=== PATIENT | female | born 1995 | race Caucasian/White ===

== ENCOUNTER 2020-06-13 15:51 | Emergency (ER) | payer BC ==
[2020-06-13] MEDS ORDERED: SODIUM CHLORIDE 0.9% 500 ML INFUS.BAG IV ONE (16:50)
[2020-06-13 16:52] VITALS: BP 132/62; PULSE 72; TEMP 98.1; BMI 35.9
--- OUTSIDE RECORDS SUMMARY | 2020-06-13 16:55 | XMS ---
:1995 Author Organization [facility] Support Name Relationship Address Phone UE Unavailable Unavailable Unavailable KORY DOWD [address] [facility] [phone] [place] [id number] Re-disclosure Warning The records that you are about to access may contain information from federally- assisted alcohol or drug abuse programs. If such information is present, then the following federally mandated warning applies: This information has been disclosed to you from records protected by federal confidentiality rules (42 CFR part 2). The federal rules prohibit you from making any further disclosure of this information unless further disclosure is expressly permitted by the written consent of the person to whom it pertains or as otherwise permitted by 42 CFR part 2. A general authorization for the release of medical or other information is NOT sufficient for this purpose. The Federal rules restrict any use of the information to criminally investigate or prosecute any alcohol or drug abuse patient.The records that you are about to access may contain highly sensitive health information, the redisclosure of which is protected by Article 27-F of the [facility] Public Health law. If you continue you may haveaccess to information: Regarding HIV / AIDS; Provided by facilities licensed or operated by the [facility] Office of Mental Health; or Provided by the [facility] Office for People With Developmental Disabilities. If such information is present, then the following [facility] mandated warning applies: This information has been disclosed to you from confidential records which are protected by state law. State law prohibits you from making any further disclosure of this information without the specific written consent of the person to whom it pertains, or as otherwise permitted by law. Any unauthorized further disclosure in violation of state law may result in a fine or correction sentence or both. A general authorization for the release of medical or other information is NOT sufficient authorization for further disclosure. Insurance Providers Payer name Policy type / Policy ID Covered Covered republican's Policy Plan Coverage type republican ID relationship to Rod Information rod [employer] EPO [id number]
--- NOTE | 2020-06-13 17:00 | PDOC ---
History of Present Illness - General Chief Complaint: Allergic Reaction Stated Complaint: LUMP ON BACK (MIDDLE) Time Seen by Provider: 06/13/20 16:32 History Source: Patient Exam Limitations: No Limitations - History of Present Illness Initial Comments: 06/13/20 16:55 Patient is a 25-year-old female who presents the ED with an abscess to her back that she has had for the last 5 days. She states she saw her primary doctor yesterday and was started on Augmentin and Bactrim for the abscess. She states she noticed it was getting progressively worse so she followed up with her primary doctor. She denies any fevers or chills. She states the area hurts tremendously. After starting the antibiotic she developed a rash to her bilateral wrists which is very itchy. She denies any mouth or tongue swelling. She denies any difficulty tolerating her own secretions. She denies any shortness of breath. Past History - Medical History Allergies/Adverse Reactions: Allergies Allergy/AdvReac Type Severity Reaction Status Date / Time No Known Allergies Allergy Verified 06/13/20 16:17 Home Medications: Ambulatory Orders Clindamycin [Cleocin -] 300 mg PO Q6H 10 Days #40 capsule 06/13/20 Diphenhydramine HCl [Benadryl -] 25 mg PO Q6H PRN #30 capsule 06/13/20 - Reproductive History Is Patient Now?: No - Psycho-Social/Smoking History Smoking History: Never smoked - Substance Abuse Hx (Audit-C & DAST Scrn) How often the patient has a drink containing alcohol: Never Score: In Men: 4 or > Positive; In Women: 3 or > Positive: 0 Screen Result (Pos requires Nsg. Audit-10AR): Negative Review of Systems - Review of Systems Comments:: 06/13/20 16:57 - Review of Systems Able to Perform ROS?: Yes Constitutional: No: Fever, Chills, Loss of Appetite, Night Sweats, Weakness HEENTM: No: Eye Pain, Vision changes, Ear Pain, Throat Pain, Throat Swelling, Mouth Pain, Difficulty Swallowing Respiratory: No: Cough, Shortness of Breath, Wheezing, Sputum Production Cardiac (ROS): No: Chest Pain, Chest Tightness, Palpitations, Irregular Heart Beat, Edema ABD/GI: No: Nausea, Vomiting, Abdominal Pain, Diarrhea : No Dysuria, No Hematuria, No Frequency, No Urgency, No Vaginal Discharge/Pain, No Penile Discharge/Pain Musculoskeletal: No: Muscle Pain, Back Pain, Joint Pain, Muscle Weakness, Neck Pain Integumentary: No: Lesions; positive: Abscess to the upper back, urticarial allergic reaction Neurological: No: Headache, Numbness, Tingling, Weakness, Speech Difficulties *Physical Exam - Vital Signs Last Vital Signs Temp Pulse Resp BP Pulse Ox 98.1 F 72 18 132/62 99 06/13/20 16:17 06/13/20 16:17 06/13/20 16:17 06/13/20 16:17 06/13/20 16:17 - Physical Exam 06/13/20 17:02 - Physical Exam General Appearance: Nourished, Appropriately Dressed, No Distress HEENT: EOMI, Normal Voice, Hearing Grossly Normal; no mouth or tongue swelling appreciated. Uvula midline and without edema. Airway patent. No stridor. Neck: Supple, No Lymphadenopathy (R), No Lymphadenopathy (L), No Rigidity, No Decreased range of motion Respiratory/Chest: Lungs Clear, Normal Breath Sounds. No Respiratory Distress, No Accessory Muscle Use; no wheezes/rales/rhonchi Cardiovascular: Regular Rhythm, Regular Rate, S1, S2 Gastrointestinal/Abdominal: Normal Bowel Sounds, Soft. Non-tender, No Guarding, No Rebound, No Rigidity Musculoskeletal: Normal Inspection. No Decreased Range of Motion Extremity: Normal Capillary Refill, Normal Inspection Integumentary: Normal Color, Dry. Erythematous and indurated lesion to the upper back with significant tenderness to palpation. There is a small pustule in the center of the lesion without fluctuance. There are multiple excoriations appreciated. Significant warmth to touch. Area of erythema is 11 x 6.5 cm and area of induration is 14 x 10.5 cm. Both erythema and induration circumscribed with a skin pen and dated. The pustule was unroofed using an 11 blade scalpel after cleaning the skin with Betadine. A small amount of pus was expressed. The area was re-cleaned and bandaged with a sterile dressing. Bilateral wrist urticaria appreciated. Neurologic: psychiatric nursing aide II-XII NML intact, Fully Oriented, Alert, Normal Mood/Affect, Normal Response Procedure: The pustule was unroofed using an 11 blade scalpel after cleaning the skin with Betadine. A small amount of pus was expressed. The area was re-cleaned and bandaged with a sterile dressing. ED Treatment Course - LABORATORY CBC & Chemistry Diagram: 06/13/20 17:45 06/13/20 17:45 Medical Decision Making - Medical Decision Making 06/13/20 17:04 Assessment: Patient is a 25-year-old female with an upper back cellulitis and developing abscess without fluctuance. She is also having an allergic reaction with urticaria to her bilateral wrists likely secondary to 1 of her antibiotics. Plan: -Secondary to the patient being on both Augmentin and Bactrim, we are unable to determine which antibiotic has caused the allergic reaction. I have suggested that the patient D/C both. -Saline lock, CBC, CMP ordered -1 L of NS ordered, 25 mg of IV Benadryl ordered -We will give the patient 1 dose of IV clindamycin while in the ED and discharge her on clindamycin. -We will reassess 06/13/20 19:41 The patient's labs show a leukocytosis at 16k which is consistent with her forming abscess and cellulitis. 1 dose of clindamycin 600 mg IV has been given to her in the ED. Her rash on her wrists and hands seems to be resolving. We will also send Benadryl to her pharmacy. The patient has been advised to return to the emergency department in 2 days for a wound check and possible I&D if necessary. She has been given strict return precautions. She understands and agrees with this treatment plan and she is stable for discharge. Discharge - Discharge Information Problems reviewed: Yes Clinical Impression/Diagnosis: Abscess of back, Cellulitis of upper back excluding scapular region Condition: Stable Disposition: HOME - Additional Discharge Information Prescriptions: Diphenhydramine HCl [Benadryl -] 25 mg PO Q6H PRN #30 capsule PRN Reason: Allergies Clindamycin [Cleocin -] 300 mg PO Q6H 10 Days #40 capsule - Follow up/Referral - Patient Discharge Instructions Patient Printed Discharge Instructions: DI for Cellulitis -- Adult Additional Instructions: Take the antibiotics as prescribed and start tomorrow morning. Be sure to apply warm compresses to the area to help the wound resolve. Return to the emergency department in 2 days, on 06/15/2020, for a wound check. Return sooner for high fevers, shaking chills, profuse vomiting, increased pain, increased redness or any other worsening symptoms. Be sure to have your check the wound daily to check for the redness worsening. - Post Discharge Activity
[2020-06-13 18:10] LABS: BASO % 0.3 % (0-2.0); HEMATOCRIT 37.1 % (32.4-45.2); HEMOGLOBIN 12.3 GM/dL (10.7-15.3); LYMPH % 9.8 % (8-40); MCH 29.6 pg (25.7-33.7); MCHC 33.3 g/dl (32.0-36.0); MONO % 4.7 % (3.8-10.2); NEUT % 84.2 % (42.8-82.8); PLATELET COUNT 335 K/MM3 (134-434); RBC 4.17 M/mm3 (3.60-5.2); RDW 13.5 % (11.6-15.6); WHITE BLOOD COUNT 16.4 K/mm3 (4.0-10.0)
[2020-06-13] MEDS ORDERED: CLINDAMYCIN 600MG PREMIX IVPB 600 MG/50 ML BAG IVPB ONE ×2 (18:29→19:00)
[2020-06-13 18:45] LABS: ALBUMIN 3.4 g/dl (3.4-5.0); BILIRUBIN,TOTAL 0.2 mg/dL (0.2-1); BLOOD UREA NITROGEN 17.9 mg/dL (7-18); CALCIUM 8.8 mg/dL (8.5-10.1); CREATININE 0.8 mg/dL (0.55-1.3); POTASSIUM 4.3 mmol/L (3.5-5.1); TOT PROT 7.5 g/dl (6.4-8.2)
[2020-06-13] MEDS ORDERED: KETOROLAC TROMETHAMINE 15 MG/ML VIAL IVPUSH ONE (19:21)
[2020-06-13] MEDS ORDERED: KETOROLAC TROMETHAMINE 15 MG/ML VIAL ONE (19:30)
== END 2020-06-13 20:00 | disposition home or self-care (01) ==
LOC: JER 15:51
PROC: 3E03329 Introduction of Other Anti-infective into Peripheral Vein, Percutaneous Approach (ICD-10-PCS; principal; 2020-06-13)
PROC: 3E033GC Introduction of Other Therapeutic Substance into Peripheral Vein, Percutaneous Approach (ICD-10-PCS; 2020-06-13)
DX: L02.212 Cutaneous abscess of back [any part, except buttock and flank] (principal); L03.312 Cellulitis of back [any part except buttock and flank]
CPT/HCPCS: 36415; 80053; 84703; 85025; 99284-25